=== PATIENT | female | born 1985 | race Caucasian/White ===

== ENCOUNTER 2018-06-10 14:47 | Outpatient (CLI) | payer OTHER ==
--- NOTE | 2018-06-11 10:09 | MRI Report ---
Procedure Date: 06/10/2018 Accession Number: [id number] / [id number] Procedure: MRI - Lumbar Spine W/O CPT Code: FULL RESULT: EXAM: MRI LUMBAR SPINE WITHOUT CONTRAST EXAM DATE: 06/10/2018 03:38 PM. CLINICAL HISTORY: Lumbago with sciatica, unspecified. Low back pain. COMPARISON: None. TECHNIQUE: Multiplanar, multisequence T1-weighted and fluid-sensitive sequences of the lumbar spine from T12 to S1 without contrast. Other: None. FINDINGS: Spinal Canal: The conus terminates at T12. The conus medullaris and cauda equina are unremarkable. Alignment: No scoliosis or spondylolisthesis. Bone Marrow: Five [id number] lumbar vertebral bodies are assumed. No gross fractures or bone lesions. No bone marrow replacement. Disk Levels/Facets: T12-L1: Unremarkable. L1-L2: Minimal disk space narrowing. Minimal central stenosis, ventral thecal sac indentation by shallow posterior disk protrusion. L2-L3: Mild disk space dehydration and narrowing. Minimal central stenosis. Shallow broad-based posterior disk bulge with annular fissure. Additional asymmetric left intraforaminal protrusion. No significant foraminal narrowing. L3-L4: Mild degenerative disk disease. Shallow broad-based posterior disk bulge. Midline annular fissure. No significant stenosis. L4-L5: Mild degenerative disk disease. Circumferential disk bulge. Broad-based posterior protrusion with annular fissure. Mild facet hypertrophy. Mild stenosis without nerve root compression. L5-S1: Mild degenerative disk disease. Broad-based posterior disk protrusion. Patent central canal. Minimal to mild left lateral recess stenosis. Mild foraminal stenosis. Musculature: Normal. No edema or fatty atrophy. Other: None. IMPRESSION: Degenerative changes throughout the lumbar spine as described at L1-L2 through L5-S1. Broad-based posterior disk protrusions, notable accompanying annular fissures at L2-L3 through L4-L5. Mild multilevel bilateral stenosis without clear evidence of focal nerve root compression. Comment: The following findings are so common in adults without low back pain that while we report their presence, they must be interpreted with caution and in the context of the clinical situation. (Reference Chasek et al, Spine 2001) Prevalence of findings in patients without low back pain: Disk degeneration (any evidence): 92% Disk desiccation/T2 signal loss: 83% Disk height loss: 56% Disk bulge: 64% Disk protrusion: 32% Annular tear/high intensity zone: 38% RADIA
== END 2018-06-10 14:48 | disposition home or self-care (01) ==
LOC: DI 14:47
PROVIDERS: ATTEND Radiology Diagnostic Radiology
DX: M51.16 Intervertebral disc disorders with radiculopathy, lumbar region (principal); M48.061 Spinal stenosis, lumbar region without neurogenic claudication
CPT/HCPCS: 72148

== ENCOUNTER 2022-04-28 22:36 | Emergency (ER) | payer OTHER ==
[2022-04-28 23:12] LABS: RAPID STREP SCREEN Negative (Negative)
[2022-04-29] MEDS ORDERED: DEXAMETHASONE 10 MG/ML VIAL PO STA (00:31)
[2022-04-29] MEDS ORDERED: CHERRY SYRUP 10 ML UDC PO ONE (00:31)
--- NOTE | 2022-04-29 00:34 | ED Physician Documentation ---
PD HPI URI - Stated complaint Stated Complaint: THROAT PX - Chief complaint Chief Complaint: Heent - History obtained from History obtained from: Patient - Additional information Additional information: Patient is a 36-year-old female with no significant past medical history presenting for evaluation of sore throat that has been present for 5 days. Patient reports Throat irritation. She has a history of strep infections. She has been able to tolerate liquids.Nothing makes her symptoms better or worse. She is unsure of any sick contacts. No fever, chest pain, trouble breathing, abdominal pain, vomiting. Review of Systems Constitutional: denies: Fever Nose: denies: Congestion Throat: reports: Sore throat Cardiac: denies: Chest pain / pressure Respiratory: denies: Dyspnea, Cough GI: denies: Abdominal Pain, Vomiting : denies: Dysuria Skin: denies: Rash Musculoskeletal: denies: Back pain Neurologic: denies: Headache PD PAST MEDICAL HISTORY - Present Medications Home Medications: Ambulatory Orders Medication Instructions Recorded Confirmed Valacyclovir HCl [Valtrex] 04/28/22 - Allergies Allergies/Adverse Reactions: Allergies Allergy/AdvReac Type Severity Reaction Status Date / Time penicillamine Allergy Mild Hives Verified 04/28/22 22:42 PD ED PE NORMAL - General General: Alert and oriented X 3, No acute distress, Well developed/nourished - HEENT HEENT: Atraumatic, Moist mucous membranes, Pharynx benign (No oral swelling or exudate, normal speech) - Neck Neck: Supple, no meningeal sign - Cardiac Cardiac: RRR, No murmur, Strong equal pulses - Respiratory Respiratory: No respiratory distress, Clear bilaterally - Abdomen Abdomen: Normal bowel sounds, Soft, Non tender, Non distended - Derm Derm: Warm and dry - Extremities Extremities: No edema - Neuro Neuro: Normal speech - Psych Psych: Normal mood Results - Vitals Vitals: Vital Signs - 24 hr 04/28/22 04/29/22 22:44 00:43 Temperature 36.7 C 36.8 C Heart Rate 88 80 Respiratory 20 16 Rate Blood Pressure 137/92 H 122/66 O2 Saturation 97 99 Oxygen O2 Source Room air - Labs Labs: Laboratory Tests 04/28/22 23:00 Group A Strep Rapid Negative PD MEDICAL DECISION MAKING - ED course Complexity details: reviewed results, re-evaluated patient ED course: Patient with sore throat for 5 days. She is well-appearing. No signs of oral abscess or swelling. Strep test is negative. Aware culture is pending.Decadron is given. Patient counseled on continuing with supportive care as well as return precautions. Departure - Departure Disposition: 01 Home, Self Care Clinical Impression: Pharyngitis Qualifiers: Pharyngitis/tonsillitis etiology: unspecified etiology Qualified Code(s): J02.9 - Acute pharyngitis, unspecified Condition: Stable Instructions: ED Pharyngitis Viral Comments: You were evaluated for a sore throat. Your strep test is negative. A number of viruses can also cause a throat infection. I have given you a dose of a steroid to help with the irritation and inflammation. We will also send the swab for culture and notify you of any abnormal results. Please continue with anti- inflammatory medication such as ibuprofen or acetaminophen as well as salt water gargles as this may help relieve some of your symptoms. If you are having any difficulty swallowing or trouble breathing please return to the emergency department. Discharge Date/Time: 04/29/22 00:43
[2022-04-29 00:43] VITALS: BP 122/66
== END 2022-04-29 00:43 | disposition home or self-care (01) ==
LOC: ED 22:36
DX: J02.9 Acute pharyngitis, unspecified (principal)
CPT/HCPCS: 87070; 87430; 99282; 99283; A9270

== ENCOUNTER 2024-05-08 07:45 | Outpatient (CLI) | payer OTHER | END 2024-05-08 08:00 | disposition home or self-care (01) | LOC: LAB.N 07:45 | PROVIDERS: ATTEND Family Medicine | DX: T14.8XXA Other injury of unspecified body region, initial encounter (principal); W57.XXXA Bitten or stung by nonvenomous insect and other nonvenomous arthropods, initial encounter | CPT/HCPCS: 87070; 87205 ==